=== PATIENT | female | born 1995 | race African-American/Black ===

== ENCOUNTER 2016-03-26 12:05 | Emergency (ER) | payer MEDICAID, OTHER ==
[~2016-03-26] VITALS: Ht 152.4 cm; Wt 60.0 kg
[~2016-03-26 12:05] MED LIST: ADVA100A INH; ALBU0.086 INH; ALBU8I INH; DUONSOL2 NEB; IBUP-232 PO
[2016-03-26 12:07] VITALS: BP 117/79; PULSE 74; RESP 16; TEMP 97.8; O2SAT 98
[2016-03-26] MEDS ORDERED: RESP: ALBUTEROL 2.5 MG/IPRATROPIUM 0.5 MG NEB (SCH) INH ONE (12:30)
[2016-03-26] MEDS ORDERED: predniSONE 20 MG TAB PO ONE (12:30)
[2016-03-26] MEDS ORDERED: ADVA100A INH (12:32)
[2016-03-26] MEDS ORDERED: PRED20 PO (12:32)
[2016-03-26] MEDS ORDERED: ALBUAER3 INH (12:32)
--- NOTE | 2016-03-26 12:49 | PD ---
HPI Chief Complaint: Cold / Flu Symptoms Time Seen by Provider: 12:30 Travel History International Travel<30 days: No Contact w/Intl Traveler<30days: No Traveled to known affect area: No History of Present Illness HPI 20-year-old female with history of asthma presents for evaluation of cough and wheezing. Symptoms started 1 week ago. The cough is productive with clear sputum. She also endorses nasal congestion primarily at night. She is not albuterol inhaler which seems to help but she is about to run out of the albuterol. She reports that she has lost her Advair medication. Denies fevers , chills, sore throat, ear pain, abdominal pain, rash, recent travel, nausea or vomiting. She has no other complaints at this time. PFSH Past Medical History Asthma: Yes Diminished Hearing: Yes Respiratory: Yes (ASTHMA) Social History Alcohol Use: No Tobacco Use: No Substance Use: Yes (marijuana) Allergies-Medications (Allergen,Severity, Reaction): Coded Allergies: No Known Allergies (Verified , 03/26/16) Reported Meds & Prescriptions Reported Meds & Active Scripts Active Proair Hfa 8.5 GM Inh (Albuterol Sulfate) 90 Mcg/Act Aer 2 Puff INH Q4-6H PRN 108 mcg/actuation Prednisone 20 Mg Tab 20 Mg PO BID 5 Days Advair Diskus Inh (Fluticasone-Salmeterol Inh) 100-50 Mcg/Blist Aer 1 Puff INH BID Rinse mouth after use. Ibuprofen 600 Mg Tab 600 Mg PO Q8HR PRN Proventil Ud 0.083% (2.5 Mg/3 Ml) (Albuterol Sulfate) 2.5 Mg/3 Ml Inha 2.5 Mg INH Q4 Reported Ventolin Hfa (Albuterol Sulfate) 8 Gm Aero 1 Puff INH Q4H PRN * SHAKE WELL BEFORE USE * Advair Diskus 100/50 (Salmeterol Xinafoate/Fluticasone) 100 Mcg/50 Mcg Inhp 1 Puff INH DAILY Duoneb 1 Amp Nebu 1 Amp NEB PRN Review of Systems Except as stated in HPI: all other systems reviewed are Neg Physical Exam Narrative GENERAL: Well-developed well-nourished female in no acute distress SKIN: Warm and dry. HEAD: Atraumatic. Normocephalic. EYES: Pupils equal and round. No scleral icterus. No injection or drainage. ENT: No nasal bleeding or discharge. Mucous membranes pink and moist. No oropharyngeal erythema or exudate NECK: Trachea midline. No JVD. No lymphadenopathy CARDIOVASCULAR: Regular rate and rhythm. No murmur appreciated. RESPIRATORY: No accessory muscle use. Clear to auscultation. Breath sounds equal bilaterally. Mild wheezing, no crackles or rhonchi MUSCULOSKELETAL: No obvious deformities. No clubbing. No cyanosis. No edema. Data Data Last Documented VS Vital Signs Date Time Temp Pulse Resp B/P Pulse Ox O2 Delivery O2 Flow Rate FiO2 03/26/16 12:07 97.8 74 16 117/79 98 Room Air Orders Prednisone (Deltasone) (03/26/16 12:30) Albuterol-Ipratropium Neb (Duoneb Neb) (03/26/16 12:30) [facility] Medical Decision Making Medical Screen Exam Complete: Yes Emergency Medical Condition: Yes Medical Record Reviewed: Yes Differential Diagnosis Asthma exacerbation, bronchitis, pneumonia, reactive, influenza, sinusitis, pulmonary embolism Narrative Course The patient appears to be having a mild asthma exacerbation likely secondary to a viral upper respiratory infection. DuoNeb therapy and prednisone initiated here. She is being discharged with a short course of systemic prednisone, albuterol inhaler refill. She is be given a refill of her Advair Diskus days after each exacerbation is completed. Diagnosis Primary Impression: Asthma exacerbation Departure Forms: Tests/Procedures, Work Release Enter return to work date: Mar 27, 2016 Additional Instructions: Use prednisone and albuterol as prescribed. Once your acute symptoms have resolved. Continue your advair medication. Follow-up with primary care physician and return for any acutely new or worsening symptoms. Med/Other Pt SpecificInfo: Prescription(s) given Scripts Albuterol 8.5 GM Inh (Proair Hfa 8.5 GM Inh)90 Mcg/Act Aer2 Puff INH Q4-6H PRN ( SHORTNESS OF BREATH) #1 INHALER Ref 0 108 mcg/actuation Prov:Artie Loyola MD 03/26/16 Prednisone 20 Mg Tab20 Mg PO BID 5 Days Ref 0 Prov:Artie Loyola MD 03/26/16 Fluticasone-Salmeterol Inh (Advair Diskus Inh)100-50 Mcg/Blist Aer1 Puff INH BID #1 INHALER Ref 0 Rinse mouth after use. Prov:Artie Loyola MD 03/26/16 Disposition: 01 DISCHARGE HOME Condition: Stable Johnathan Belle Mar 26, 2016 12:49
[2016-03-26 12:51] VITALS: O2SAT 98
== END 2016-03-26 13:14 | disposition home or self-care (01) ==
LOC: NEPB 12:05
DX: J45.901 Unspecified asthma with (acute) exacerbation (principal); F12.10 Cannabis abuse, uncomplicated; J06.9 Acute upper respiratory infection, unspecified
CPT/HCPCS: 94664; 99283; J7512